=== PATIENT | male | born 1990 | race Caucasian/White ===

== ENCOUNTER 2019-10-10 11:23 | Emergency (ER) | payer OTHER, SELFPAY ==
[2019-10-10 11:28] VITALS: BP 140/105; PULSE 112; RESP 24; O2SAT 100; BMI 41.5
[2019-10-10 11:34] VITALS: TEMP 36.6
--- NOTE | 2019-10-10 11:35 | ED_ITS ---
Entered by Bayron Lomeli, acting as scribe for Steve Mena MD HPI - Abdominal Pain General: Chief Complaint: Abdominal Pain Stated Complaint: ABD PAIN SOB AND SWEATY Time Seen by Provider: 10/10/19 11:37 History of Present Illness: HPI narrative: 28 yo male presents with abd pain. Pt states that his pain has been present since Saturday. Pt states that he has been vomiting every 12 hours since last Saturday. Pt states that he had severe pain yesterday. Pt states that he is able to eat crackers but he can't eat anything else without pain and vomiting. MD elicited complaint: abdominal pain Pertinent past history: none Onset (ago): day(s) (6) Pain Consistency: constant Location: Periumbilical Severity: severe Pain scale (0-10): 10 Quality: stabbing Radiation: none Exacerbating factors: eating and movement Relieving factors: other (rubbing his stomach) Associated Symptoms: Reports nausea and vomiting; Denies chills, dysuria and fever(s) Review of Systems Const: Denies: fever, chills, body aches or change in appetite Eyes: Denies: blurry vision or eye discomfort ENMT: Denies: throat pain or dental pain Card: Denies: chest pain Resp: Denies: shortness of breath GI: Reports: abdominal pain, nausea and vomiting : Denies: painful urination Musc: Denies: neck pain or back pain Skin/Breast: Denies: rash Neuro: Denies: headache Psych: Denies: depression [place]/Lymph: Denies: easy bruising All/Imm: Denies: hives PFSH ED PFSH: Social History Smoking and tobacco status: never smoked Physical Exam Const: COMMON NORMALS: no apparent distress, oriented x3 and healthy appearing HENMT: COMMON NORMALS: normocephalic and head/scalp atraumatic HEAD & SCALP: normocephalic and atraumatic Eye: COMMON NORMALS: PERRL and EOMs intact bilaterally PUPIL: Yes PERRL Neck/C-Spine: COMMON NORMALS: full ROM and supple Chest: COMMONS NORMALS: inspection of chest normal and palpation of chest normal Resp: COMMON NORMALS: normal respiratory effort, no retractions, no use of accessory muscles and clear to auscultation bilaterally AUSCULTATION: clear to auscultation bilaterally Cardio: COMMON NORMALS: regular rate, regular rhythm and no murmurs RATE: regular rate RHYTHM: regular rhythm GI: COMMON NORMALS: normal to inspection, nondistended, normoactive bowel sounds, soft to palpation and non-tender PALPATION: Yes soft Extremity: COMMON NORMALS: normal to inspection and full ROM Neuro: COMMON NORMALS: oriented x3, moves all extremities and no focal motor deficits Psych: COMMON NORMALS: mental status grossly normal, thought process normal and cooperative THOUGHT PROCESS: normal thought process Skin: COMMON NORMALS: no rashes or lesions noted and no wounds GENERAL SKIN EXAM: no rashes or lesions noted Course Vital Signs: Vital signs: Vital Signs Temperature 97.9 F 10/10/19 11:34 Pulse Rate 112 H 10/10/19 11:28 Respiratory Rate 24 H 10/10/19 11:28 Blood Pressure 140/105 10/10/19 11:28 Pulse Oximetry 100 10/10/19 11:28 MDM - Abdominal Pain MDM Narrative: Medical decision making narrative: Patient presents here with abdominal pain history consistent with a likely gastritis. Patient does have an elevated white count CT scan showed a colitis. Patient has no signs of cholecystitis. His pain is improved here and abdominal exam at discharge is benign. We will start him on Protonix along with Augmentin and Blackduck and Zofran. He is to follow-up with his primary care doctor in 3 to 5 days. I did give him diet modifications as well. I informed if he has a fever worsening pain he is return to the ER. He understands and agrees to plan. Differential Diagnosis: Differential diagnosis abdominal pain: Likely abdominal pain, acute appendicitis, constipation, diverticulitis, pancreatitis and small bowel obstruction Lab Data: Labs: Lab Results 10/10/19 10/10/19 Range/Units 12:03 12:03 WBC 15.6 H (4.0-10.0) 10^3/ uL RBC 6.72 H (4.1-5.3) 10^6/u L Hgb 18.3 H (11.7-16.6) g/dL Hct 56.8 H (42.0-52.0) % MCV 84.5 (80-94) fL MCH 27.2 L (28.0-34.0) pg MCHC 32.2 (30.0-36.0) g/dL RDW 13.1 (12.1-15.1) % Plt Count 347 (130-400) 10^3/c mm MPV 12.3 H (7.4-10.4) fL Neut % (Auto) 77.9 % Lymph % (Auto) 12.4 % [place] % (Auto) 6.9 % Eos % (Auto) 1.7 % Baso % (Auto) 0.3 % Neut # (Auto) 12.2 H (1.8-7.7) 10^3/u L Lymph # (Auto) 1.9 (0.8-4.8) 10^3/u L [place] # (Auto) 1.1 H (0.2-0.9) 10^3/u L Eos # (Auto) 0.3 (0.0-0.8) 10^3/u L Baso # (Auto) 0.0 (0.0-0.1) 10^3/u L Nucleated RBC % (a uto) 0 % Nucleated RBCs # 0.0 /100WBC Sodium 137 (136-145) mmol/L Potassium 4.1 (3.5-5.1) mmol/L Chloride 101 (98-107) mmol/L Carbon Dioxide 18 L (22-29) mmol/L Anion Gap 22.1 H (5-19) BUN 17 (6-20) mg/dL Creatinine 1.2 (0.7-1.2) mg/dL GFR Calculation 71.6 L (90-130) mL/min Glucose 145 H (65-115) mg/dL Calcium 10.1 (8.5-10.5) mg/dL Total Bilirubin 0.6 (0.15-1.2) mg/dL AST 36 (0-40) U/L ALT 77 H (0-41) U/L Alkaline Phosphata se 71 (40-130) IU/L Total Protein 8.3 (6.6-8.7) g/dL Albumin 4.6 (3.5-5.2) g/dL Globulin 3.7 (1.3-4.6) g/dL Lipase 8 L (13-60) U/L Imaging Data ^: CT Abd/Pel: Radiologist's impression: Ordering Provider/Ordering MD: Steve Mena MD Date of Service: 10/10/19 Procedure(s): CT abdomen pelvis w con* [id number] Accession Number(s): [id number] Report Number: [id number] PROCEDURE INFORMATION: Exam: CT Abdomen And Pelvis With Contrast Exam date and time: 10/10/2019 2:24 PM Age: 28 years old Clinical indication: Abdominal pain; Generalized; Additional info: Abd pain TECHNIQUE: Imaging protocol: Computed tomography of the abdomen and pelvis with intravenous contrast. Total DLP: 2321.27 mGy-cm Radiation optimization: All CT scans at this facility use at least one of these dose optimization techniques: automated exposure control; mA and/or kV adjustment per patient size (includes targeted exams where dose is matched to clinical indication); or iterative reconstruction. Contrast material: OMNI 300; Contrast volume: 95 ml; Contrast route: RT AC; COMPARISON: No relevant prior studies available. FINDINGS: Liver: There is a diffuse decrease in hepatic parenchymal density, consistent with fatty infiltration. Gallbladder and bile ducts: Normal. No calcified stones. No ductal dilation. Pancreas: Normal. No ductal dilation. Spleen: Spleen is enlarged measuring 14.9 cm. Adrenals: Normal. No mass. Kidneys and ureters: Nonobstructing right renal calculus. Stomach and bowel: There are air-fluid levels in the distal colon suggesting mild nonspecific colitis versus other diarrheal illness. Appendix: A normal appendix is identified. Intraperitoneal space: Unremarkable. No free air. No significant fluid collection. Vasculature: Unremarkable. No abdominal aortic aneurysm. Lymph nodes: Multiple subcentimeter mesenteric and retroperitoneal lymph nodes. Bladder: Unremarkable as visualized. Reproductive: Unremarkable as visualized. Bones/joints: Unremarkable. No acute fracture. Soft tissues: Tiny fat containing left inguinal hernia. Tiny fat containing umbilical hernia. CT/CT abdomen pelvis w con* [id number] IMPRESSION: 1. There are air-fluid levels in the distal colon suggesting mild nonspecific colitis versus other diarrheal illness. 2. Mild splenomegaly. 3. Fatty infiltration the liver. Discharge Plan Discharge Patient Disposition: Home, Self-Care Clinical Impression: Colitis Abdominal pain Qualifiers: Abdominal location: epigastric Qualified Code(s): R10.13 - Epigastric pain Condition: Stable Prescriptions: New Blackduck 5-325 mg tablet 1 tab PO Q6H PRN (Reason: pain) Qty: 14 RF: 0 Zofran 4 mg tablet 4 mg PO QID PRN (Reason: nausea and vomiting) Qty: 14 RF: 0 Protonix 40 mg tablet,delayed release (DR/EC) 40 mg PO DAILY 56 Days RF: 0 Augmentin 875-125 mg tablet 1 tab PO BID Qty: 14 RF: 0 Discharge Orders: Discharge Order (Routine); Ordered 10/10/19 Ordered By: Steve Mena Discharge Diet: Advance as tolerated Discharge Activity: Resume usual activity Patient Instructions: Abdominal Pain (ED) Coding Level of Care Code ED Professor Of Political Science for Chg Fwd Exam Comprehensive The documentation recorded by the Armani tatum Kialy, accurately reflects the service I personally performed and the decisions made by Rajesh valero Korby, MD Oct 10, 2019 11:23
[2019-10-10] MEDS: lidocaine 2% viscous 15 ML, aluminum-mag hydrox-simethicon 30 ML, sucralfate oral liq 1 GM PO (12:07)
[2019-10-10] MEDS: sodium chloride 0.9% 1,000 ML 999 ML IV (12:08)
[2019-10-10] MEDS: ondansetron 2 mg/ML SDV 2 mL 4 MG IVP (12:08)
[2019-10-10 12:13] LABS: Basophils % 0.3 %; Eosinophils # 0.3 10^3/uL (0.0-0.8); Eosinophils % 1.7 %; Hematocrit 56.8 % (42.0-52.0); Hemoglobin 18.3 g/dL (11.7-16.6); Lymphocytes # 1.9 10^3/uL (0.8-4.8); Lymphocytes % 12.4 %; Mean Corpuscular HGB Conc 32.2 g/dL (30.0-36.0); Mean Corpuscular Hemoglobin 27.2 pg (28.0-34.0); Mean Corpuscular Volume 84.5 fL (80-94); Mean Platelet Volume 12.3 fL (7.4-10.4); Monocytes # 1.1 10^3/uL (0.2-0.9); Monocytes % 6.9 %; Neutrophils # 12.2 10^3/uL (1.8-7.7); Neutrophils % 77.9 %; Nucleated Red Blood Cells % 0 %; Platelet Count 347 10^3/cmm (130-400); Red Blood Count 6.72 10^6/uL (4.1-5.3); Red Cell Distribution Width 13.1 % (12.1-15.1); White Blood Count 15.6 10^3/uL (4.0-10.0)
[2019-10-10 13:14] LABS: Alanine Aminotransferase 77 U/L (0-41); Albumin Level 4.6 g/dL (3.5-5.2); Alkaline Phosphatase 71 IU/L (40-130); Anion Gap 22.1 (5-19); Aspartate Amino Transferase 36 U/L (0-40); Blood Urea Nitrogen 17 mg/dL (6-20); Calcium 10.1 mg/dL (8.5-10.5); Carbon Dioxide 18 mmol/L (22-29); Chloride 101 mmol/L (98-107); Creatinine Clr Calc Pharmacy 150.2647; Globulin 3.7 g/dL (1.3-4.6); Glomerular Filtration Rate 71.6 mL/min (90-130); Glucose 145 mg/dL (65-115); Lipase 8 U/L (13-60); Potassium 4.1 mmol/L (3.5-5.1); Sodium 137 mmol/L (136-145); Total Bilirubin 0.6 mg/dL (0.15-1.2); Total Protein 8.3 g/dL (6.6-8.7)
--- NOTE | 2019-10-10 13:49 | CTR_ITS ---
PROCEDURE INFORMATION: Exam: CT Abdomen And Pelvis With Contrast Exam date and time: 10/10/2019 2:24 PM Age: 28 years old Clinical indication: Abdominal pain; Generalized; Additional info: Abd pain TECHNIQUE: Imaging protocol: Computed tomography of the abdomen and pelvis with intravenous contrast. Total DLP: 2321.27 mGy-cm Radiation optimization: All CT scans at this facility use at least one of these dose optimization techniques: automated exposure control; mA and/or kV adjustment per patient size (includes targeted exams where dose is matched to clinical indication); or iterative reconstruction. Contrast material: OMNI 300; Contrast volume: 95 ml; Contrast route: RT AC; COMPARISON: No relevant prior studies available. FINDINGS: Liver: There is a diffuse decrease in hepatic parenchymal density, consistent with fatty infiltration. Gallbladder and bile ducts: Normal. No calcified stones. No ductal dilation. Pancreas: Normal. No ductal dilation. Spleen: Spleen is enlarged measuring 14.9 cm. Adrenals: Normal. No mass. Kidneys and ureters: Nonobstructing right renal calculus. Stomach and bowel: There are air-fluid levels in the distal colon suggesting mild nonspecific colitis versus other diarrheal illness. Appendix: A normal appendix is identified. Intraperitoneal space: Unremarkable. No free air. No significant fluid collection. Vasculature: Unremarkable. No abdominal aortic aneurysm. Lymph nodes: Multiple subcentimeter mesenteric and retroperitoneal lymph nodes. Bladder: Unremarkable as visualized. Reproductive: Unremarkable as visualized. Bones/joints: Unremarkable. No acute fracture. Soft tissues: Tiny fat containing left inguinal hernia. Tiny fat containing umbilical hernia. CT/CT abdomen pelvis w con* [id number] IMPRESSION: 1. There are air-fluid levels in the distal colon suggesting mild nonspecific colitis versus other diarrheal illness. 2. Mild splenomegaly. 3. Fatty infiltration the liver. Radiation Dose CTDIVOL = (mGy): DLP = 2321.27 (mGy-cm)
[2019-10-10] MEDS: iohexol 300 mg/mL 100 mL Btl IV (14:29)
[2019-10-10 16:15] VITALS: RESP 16
[2019-10-10] MEDS: morphine 4 mg/mL SDV 1 mL IVP (16:15)
[2019-10-10 16:40] VITALS: BP 116/74; PULSE 103; RESP 18; O2SAT 95
== END 2019-10-10 16:42 | disposition home or self-care (01) ==
PROVIDERS: Emergency Provider Emergency Medicine
DX: K52.9 Noninfective gastroenteritis and colitis, unspecified (principal)
CPT/HCPCS: 74177; 80053; 83690; 85025; 96361; 96374; 96375; 99282; 99283; J2270; J2405; J7030; Q9967

== ENCOUNTER → 2022-07-16 08:45 | Outpatient (BNVA) | payer OTHER, SELFPAY | PROVIDERS: Visit Provider Nurse Practitioner Family | DX: R50.9 Fever, unspecified (principal); J02.9 Acute pharyngitis, unspecified; U07.1 COVID-19 | CPT/HCPCS: 87071; 87400; 87426; 87880 ==